=== PATIENT | female | born 1995 ===

== ENCOUNTER 2023-03-29 13:12 | Outpatient (CLI) | payer SELFPAY | END 2023-03-29 13:13 | disposition home or self-care (01) | PROVIDERS: PCP Emergency Medicine; Visit Provider Emergency Medicine | DX: Z00.00 Encounter for general adult medical examination without abnormal findings (principal); R53.83 Other fatigue; E78.5 Hyperlipidemia, unspecified; K59.00 Constipation, unspecified; Z13.1 Encounter for screening for diabetes mellitus | CPT/HCPCS: 80048; 80061; 83516; 84443; 86140 ==